=== PATIENT | male | born 1940 | race Asian ===

== ENCOUNTER 2017-11-20 22:05 | Emergency (ER) | payer MEDICARE, OTHER ==
[~2017-11-20] VITALS: Ht 170.2 cm; Wt 81.6 kg
[2017-11-20] MEDS ORDERED: Sodium Chloride 500ML 500 ML IV ONE (22:23)
[2017-11-20] MEDS ORDERED: LISINOPRIL5 MG ORAL (22:43)
[2017-11-20] MEDS ORDERED: METFORMIN HCL1000 M3 PO (22:43)
[2017-11-20 22:58] LABS: HEMATOCRIT 50.6 % (42.0-52.0); HEMOGLOBIN 17.2 G/DL (14.2-18.0); MEAN CORPUSCULAR VOLUME 86 FL (80-99); PLATELET COUNT 228 K/UL (150-450); RED BLOOD COUNT 5.87 M/UL (4.70-6.10)
[2017-11-20 23:04] LABS: ANION GAP 13 mmol/L (5-15); BLOOD UREA NITROGEN 16 mg/dL (7-18); CARBON DIOXIDE 24 MMOL/L (21-32); CHLORIDE 95 MMOL/L (98-107); CREATININE 1.4 MG/DL (0.55-1.30); POTASSIUM 3.2 MMOL/L (3.5-5.1); SODIUM 132 MMOL/L (136-145)
[2017-11-20 23:17] LABS: ALANINE AMINOTRANSFERASE 49 U/L (12-78); ALBUMIN 3.5 G/DL (3.4-5.0); ALBUMIN/GLOBULIN RATIO 0.8 (1.0-2.7); ALKALINE PHOSPHATASE 77 U/L (46-116); ASPARTATE AMINO TRANSFERASE 22 U/L (15-37); BILIRUBIN,TOTAL 0.5 MG/DL (0.2-1.0); CKMB 1.1 NG/ML (0.0-3.6); CREATINE KINASE 217 U/L (26-308)
[2017-11-20 23:25] VITALS: BP 190/100
[2017-11-20] MEDS ORDERED: dilTIAZem HCl 25mg/5ml Inj IVP ONE (23:45)
[2017-11-20 23:56] VITALS: BP 183/89
[2017-11-21] MEDS ORDERED: Morphine Sulfate 4mg/ml Inj IVP ONE (00:15)
[2017-11-21 00:32] LABS: INR 1.1 (0.9-1.1)
[2017-11-21 02:01] VITALS: BP 182/93
[2017-11-21] MEDS ORDERED: dilTIAZem HCl 25mg/5ml Inj IVP ONE (03:00)
[2017-11-21 03:28] VITALS: BP 169/83
--- NOTE | 2017-11-21 03:28 | Emergency Room Report ---
History of Present Illness General Chief Complaint: Multiple Trauma/Fall Source: Patient, EMS Present Illness HPI 77 yo male presents ED for evaluation. Per EMS patient had fall at home. Patient states he felt weak on his left side and fell. He denies hitting his head or LOC. Complaining of left hip pain. Throbbing, 8 out of 10, nonradiating. Unable to bear weight. 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 Denies any new weakness. Per EMS patient is hypertensive. Patient states he does not know his blood pressure meds. States he has not been taking his medications. Denies chest pain shortness of breath. No other aggravating or relieving factors. Denies any other associated symptoms Allergies: Coded Allergies: No Known Allergies (Unverified , 11/20/17) Patient History Past Medical History: DM, HTN, CVA/TIA Past Surgical History: none Pertinent Family History: none Social History: Denies: smoking, alcohol use, drug use Immunizations: UTD Reviewed Nursing Documentation: PMH: Agreed, PSxH: Agreed Nursing Documentation-PMH Hx Hypertension: Yes Hx Diabetes: Yes Hx Cerebrovascular Accident: Yes Review of Systems All Other Systems: negative except mentioned in HPI Physical Exam Vital Signs Date Time Temp Pulse Resp B/P (MAP) Pulse Ox O2 Delivery O2 Flow Rate FiO2 11/20/17 21:54 98.5 118 20 202/112 98 Room Air 98.4 11/20/17 23:56 2.0 Sp02 EP Interpretation: reviewed, normal General Appearance: no apparent distress, alert, GCS 15, non-toxic Head: normocephalic, atraumatic Eyes: bilateral eye normal inspection, bilateral eye PERRL ENT: hearing grossly normal, normal pharynx, no angioedema, normal voice Neck: full range of motion, supple/symm/no masses Respiratory: chest non-tender, lungs clear, normal breath sounds, speaking full sentences Cardiovascular #1: regular rate, rhythm, no edema Cardiovascular #2: 2+ carotid (R), 2+ carotid (L), 2+ radial (R), 2+ radial (L) , 2+ dorsalis pedis (R), 2+ dorsalis pedis (L) Gastrointestinal: normal bowel sounds, non tender, soft, non-distended, no guarding, no rebound Rectal: deferred Genitourinary: normal inspection, no CVA tenderness Musculoskeletal: back normal, gait/station normal, decreased range of motion, tender - L hip Neurologic: alert, oriented x3, responsive, process analyst III-XII nml as tested, motor strength/tone normal, sensory intact, speech normal Psychiatric: judgement/insight normal, memory normal, mood/affect normal, no suicidal/homicidal ideation Reflexes: 3+ bicep (R), 3+ bicep (L), 3+ tricep (R), 3+ tricep (L), 3+ knee (R) , 3+ knee (L) Skin: normal color, no rash, warm/dry, well hydrated Lymphatic: no adenopathy Medical Decision Making Diagnostic Impression: Primary Impression: Hypertensive urgency Additional Impression: Hip fracture Qualified Codes: S72.002A - Fracture of unspecified part of neck of left femur , initial encounter for closed fracture ER Course Hospital Course 77-year-old male presents to ED with Lhip pain s/p fall. hypertensive/ tachycardia Differential diagnoses include: fracture, dislocation, contusion Clinical course Patient placed on stretcher. After initial history and physical I ordered labs , pain medication and imaging studies Labs reviewed-mild leukocytosis noted, electrolytes okay, hemoglobin/hematocrit okay Chest x-ray- unremarkable, cardiomegaly Femur x-ray shows subcapital femoral neck fx CT Pelvis confirms fx CT head unremarkable Patient remains tachycardic/hypertensive in ED. Given Cardizem with blood pressure, tachycardia improving Because of insurance patient will be transferred i. I feel this is a highly complex case requiring extensive working including EKG/Rhythm strip, Xray/CT/US, Blood/urine lab work, repeat exams while in ED, and administration of strong opiates/narcotics for pain control, admission to hospital or close patient follow up. Diagnosis - hypertensive urgency, hip fx Transferred in serious condition Labs Test 11/20/17 22:38 White Blood Count 20.0 K/UL (4.8-10.8) Red Blood Count 5.87 M/UL (4.70-6.10) Hemoglobin 17.2 G/DL (14.2-18.0) Hematocrit 50.6 % (42.0-52.0) Mean Corpuscular Volume 86 FL (80-99) Mean Corpuscular Hemoglobin 29.4 PG (27.0-31.0) Mean Corpuscular Hemoglobin Concent 34.1 G/DL (32.0-36.0) Red Cell Distribution Width 11.0 % (11.6-14.8) Platelet Count 228 K/UL (150-450) Mean Platelet Volume 6.2 FL (6.5-10.1) Neutrophils (%) (Auto) % (45.0-75.0) Lymphocytes (%) (Auto) % (20.0-45.0) Monocytes (%) (Auto) % (1.0-10.0) Eosinophils (%) (Auto) % (0.0-3.0) Basophils (%) (Auto) % (0.0-2.0) Differential Total Cells Counted 100 Neutrophils % (Manual) 87 % (45-75) Lymphocytes % (Manual) 6 % (20-45) Monocytes % (Manual) 4 % (1-10) Eosinophils % (Manual) 0 % (0-3) Basophils % (Manual) 0 % (0-2) Band Neutrophils 3 % (0-8) Platelet Estimate Adequate Platelet Morphology Normal Prothrombin Time 11.3 SEC (9.30-11.50) Prothromb Time International Ratio 1.1 (0.9-1.1) Activated Partial Thromboplast Time 29 SEC (23-33) Sodium Level 132 MMOL/L (136-145) Potassium Level 3.2 MMOL/L (3.5-5.1) Chloride Level 95 MMOL/L (98-107) Carbon Dioxide Level 24 MMOL/L (21-32) Anion Gap 13 mmol/L (5-15) Blood Urea Nitrogen 16 mg/dL (7-18) Creatinine 1.4 MG/DL (0.55-1.30) Estimat Glomerular Filtration Rate mL/min (>60) Glucose Level 344 MG/DL (74-106) Calcium Level 9.0 MG/DL (8.5-10.1) Total Bilirubin 0.5 MG/DL (0.2-1.0) Aspartate Amino Transf (AST/SGOT) 22 U/L (15-37) Alanine Aminotransferase (ALT/SGPT) 49 U/L (12-78) Alkaline Phosphatase 77 U/L (46-116) Total Creatine Kinase 217 U/L (26-308) Creatine Kinase MB 1.1 NG/ML (0.0-3.6) Creatine Kinase MB Relative Index 0.5 Troponin I 0.000 ng/mL (0.000-0.056) Pro-B-Type Natriuretic Peptide 55 pg/mL (0-125) Total Protein 7.8 G/DL (6.4-8.2) Albumin 3.5 G/DL (3.4-5.0) Globulin 4.3 g/dL Albumin/Globulin Ratio 0.8 (1.0-2.7) EKG Diagnostic Results Rate: tachycardiac Rhythm: NSR ST Segments: no acute changes ASA given to the pt in ED: No Rhythm Strip Diag. Results EP Interpretation: yes Rhythm: NSR, no PVC's, no ectopy Chest X-Ray Diagnostic Results Chest X-Ray Diagnostic Results : Chest X-Ray Ordered: Yes # of Views/Limited/Complete: 1 View Indication: Other - fall EP Interpretation: Yes Interpretation: no consolidation, no effusion, no pneumothorax, no acute cardiopulmonary disease Impression: Other - cardiomegaly Electronically Signed by: Electronically signed by Joey Rodriguez MD Other X-Ray Diagnostic Results Other X-Ray Diagnostic Results #1: X-Ray ordered: Left knee # of Views/Limited Vs Complete: 3 View Indication: Pain EP Interpretation: Yes Interpretation: no dislocation, no soft tissue swelling, no fractures Impression: No acute disease Electronically Signed by: Electronically signed by Joey Rodriguez MD Other X-Ray Diagnostic Results #2: X-Ray ordered: L tibfib # of Views/Limited Vs Complete: 3 View Indication: Pain EP Interpretation: Yes Interpretation: no dislocation, no soft tissue swelling, no fractures Impression: No acute disease Electronically Signed by: Electronically signed by Joey Rodriguez MD Other X-Ray Diagnostic Results #3: X-Ray ordered: Left femur # of Views/Limited Vs Complete: 3 View Indication: Pain EP Interpretation: Yes Interpretation: no dislocation, no soft tissue swelling, other - femoral neck fx Impression: Other - fx Electronically Signed by: Electronically signed by Joey Rodriguez MD CT/MRI/US Diagnostic Results CT/MRI/US Diagnostic Results #1: Imaging Test Ordered: CT Head Impression no acute process CT/MRI/US Diagnostic Results #2: Imaging Test Ordered: CT Pelvis Impression acute impacted/angulated left subcapital femoral neck fx Last Vital Signs Date Time Temp Pulse Resp B/P (MAP) Pulse Ox O2 Delivery O2 Flow Rate FiO2 11/21/17 02:01 112 22 182/93 94 Nasal Cannula 2.0 11/20/17 21:54 98.5 98.4 Status: improved Disposition: XFER SHT-TRM HOSP Condition: Serious Referrals: [facility],REFERRING (PCP) JOEY RODRIGUEZ M.D. Nov 21, 2017 03:28
--- NOTE | 2017-11-21 09:38 | Diagnostic Imaging Report ---
Indication: Pain, status post fall Technique: spiral acquisitions obtained through the brain. Angled axial and coronal 5 x 5 mm slices were reconstructed. No IV contrast utilized. Radiation dose was minimized using automated exposure control Total dose length product 1411.27 mGycm. CTDIvol(s) 70.38 mGy Comparison: none FINDINGS: No acute hemorrhage or edema. No mass effect or midline shift. There is age-related enlargement of the ventricles and extra axial CSF spaces. There is periventricular deep white matter ischemic change. Normal laurent-white differentiation. Old lacunar infarcts are seen in the right basal ganglia and periventricular deep white matter. Visualized orbits are unremarkable. There is minimal ethmoid sinus mucosal thickening.. Intact calvarium. IMPRESSION: Chronic and age-related changes. Negative for acute intracranial bleed or mass effect Minimal sinus disease This agrees with the preliminary interpretation provided overnight by [facility] service. The CT scanner at [facility] is accredited by the [employer] and the scans are performed using protocols designed to limit radiation exposure to as low as reasonably achievable to attain images of sufficient resolution adequate for diagnostic evaluation
--- NOTE | 2017-11-21 09:42 | Diagnostic Imaging Report ---
Indication: Pain, status post fall Technique: Noncontrast spiral acquisitions obtained through the pelvis. Multiplanar reconstructions generated. Total dose length product 430.8 mGycm. CTDIvol(s) 11.41,12.02 mGy. Dose reduction achieved using automated exposure control Comparison: none Findings: There is a fracture of the left femoral neck. This is slightly posteriorly angulated. No associated pelvic fracture demonstrated. No significant soft tissue hematoma demonstrated. Scattered small osteonecrotic foci are seen in the pelvis. There are degenerative changes of the lumbosacral junction. The prostate is mildly enlarged. There is a small fat-containing left inguinal hernia. There is colonic diverticulosis. Impression: Positive for left femoral neck fracture Small osteoporotic foci in the pelvis probably represent small bone islands, osseous metastases less likely Other findings as noted, including prostatomegaly, colonic diverticulosis, fat-containing left inguinal hernia, degenerative spondylosis This agrees with the preliminary interpretation provided overnight by [facility]. The CT scanner at [facility] is accredited by the [employer] and the scans are performed using protocols designed to limit radiation exposure to as low as reasonably achievable to attain images of sufficient resolution adequate for diagnostic evaluation.
--- NOTE | 2017-11-21 10:43 | Diagnostic Imaging Report ---
Indication: Pain, status post fall Technique: 3 views of the left knee Comparison: None Findings: No suprapatellar effusion. No acute fractures or dislocations. There are lateral osteophytes. 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 Another calcification projects in the posterior knee joint could represent small loose body. Impression: No acute bony trauma Mild degenerative changes Possible small intra-articular loose body-correlate with clinical findings This agrees with the preliminary interpretation provided by the emergency room physician
--- NOTE | 2017-11-21 10:44 | Diagnostic Imaging Report ---
Indication: Pain, status post fall Technique: 2 views of the tibia and fibula Comparison: none Findings: No acute fractures. No dislocations. No radiopaque foreign body Impression: Negative This agrees with the preliminary interpretation provided by the emergency room physician
--- NOTE | 2017-11-21 10:49 | Diagnostic Imaging Report ---
Indications: Pain, status post fall Technique: Two views of the left femur Comparison: None Findings: There is a fracture of the left femoral neck. No distal fracture demonstrated. Impression: Positive for femoral neck fracture This agrees with the preliminary interpretation provided by the emergency room physician
--- NOTE | 2017-11-21 14:11 | Diagnostic Imaging Report ---
Indication: Chest pain, trauma Technique: One view of the chest Comparison: none Findings: There is a band of atelectasis at the right lung base. There is equivocal small cystic space at the left lung base. There are multiple left rib fracture deformities which are probably old and healed. No gross pneumothorax Normal heart size Impression: Minimal right basilar atelectasis. No definite acute process otherwise Left rib fracture deformities, probably old Possible small bulla at the left lung base This agrees with the preliminary interpretation provided by the emergency room physician
--- NOTE | 2017-11-21 18:31 | Cardiology Report ---
APPROVED REPORT EKG Measurement Heart [id number] Sin[address] N[address] ST abnormality Abnormal ECG
== END 2017-11-21 03:26 | disposition short-term general hospital (02) ==
LOC: EDBD 22:05 → EMR 22:55 → EDBEDREQ 23:32 → EMR 11-21 03:26
DX: S72.092A Other fracture of head and neck of left femur, initial encounter for closed fracture (principal); W19.XXXA Unspecified fall, initial encounter; Y92.019 Unspecified place in single-family (private) house as the place of occurrence of the external cause; I16.0 Hypertensive urgency; E11.9 Type 2 diabetes mellitus without complications; Z86.73 Personal history of transient ischemic attack (TIA), and cerebral infarction without residual deficits; R51 Headache; J32.9 Chronic sinusitis, unspecified
CPT/HCPCS: 36415; 70450; 71045; 72192; 80053; 82550; 82553; 82962; 83880; 84484; 85007; 85025; 85610; 85730; 86850; 86900; 86901; 93005; 96361; 96374; 96375; 99285

== ENCOUNTER 2018-01-19 10:08 | Inpatient (IN) | payer MEDICARE, OTHER ==
[~2018-01-19] VITALS: Ht 160 cm; Wt 52.6 kg
[~2018-01-19 10:08] MED LIST: LISINOPRIL5 MG ORAL; METFORMIN HCL1000 M3 PO
[2018-01-19] MEDS ORDERED: cefTRIAXone 1 GM in NS 55 ML IVPB ONE (10:15)
[2018-01-19] MEDS ORDERED: Morphine Sulfate 4mg/ml Inj IVP ONE ×3 (10:15→16:00)
[2018-01-19] MEDS ORDERED: Isovue-300 100ml vial INJ PRN (10:15)
[2018-01-19 10:49] LABS: APPEARANCE,URINE TURBID; BILIRUBIN, URINE NEGATIVE (NEGATIVE); COLOR,URINE PALE YELLOW; GLUCOSE, URINE (UA) NEGATIVE (NEGATIVE); KETONES,URINE 4+ (NEGATIVE); LEUKOCYTE ESTERASE ,URINE 3+ (NEGATIVE); NITRITE,URINE POSITIVE (NEGATIVE); PH,URINE 7 (4.5-8.0); PROTEIN,URINE 4+ (NEGATIVE); UROBILINOGEN,URINE NORMAL MG/DL (0.0-1.0)
[2018-01-19 10:50] LABS: BASOPHILS % (AUTO) 1.1 % (0.0-2.0); HEMATOCRIT 40.7 % (42.0-52.0); HEMOGLOBIN 12.8 G/DL (14.2-18.0); LYMPHOCYTES % (AUTO) 35.7 % (20.0-45.0); MEAN CORPUSCULAR VOLUME 88 FL (80-99); MONOCYTES % (AUTO) 4.7 % (1.0-10.0); NEUTROPHILS % (AUTO) 54.5 % (45.0-75.0); PLATELET COUNT 279 K/UL (150-450); RED BLOOD COUNT 4.65 M/UL (4.70-6.10); RED CELL DISTRIBUTION WIDTH 13.6 % (11.6-14.8); WHITE BLOOD COUNT 13.2 K/UL (4.8-10.8)
[2018-01-19 11:17] LABS: ANION GAP 17 mmol/L (5-15); BLOOD UREA NITROGEN 24 mg/dL (7-18); CALCIUM 9.4 MG/DL (8.5-10.1); CARBON DIOXIDE 18 MMOL/L (21-32); CHLORIDE 99 MMOL/L (98-107); CREATININE 1.1 MG/DL (0.55-1.30); POTASSIUM 4.2 MMOL/L (3.5-5.1); SODIUM 134 MMOL/L (136-145)
[2018-01-19 11:21] LABS: ALANINE AMINOTRANSFERASE 21 U/L (12-78); ALBUMIN 3.3 G/DL (3.4-5.0); ALBUMIN/GLOBULIN RATIO 0.7 (1.0-2.7); ALKALINE PHOSPHATASE 108 U/L (46-116); ASPARTATE AMINO TRANSFERASE 24 U/L (15-37); BILIRUBIN,TOTAL 0.7 MG/DL (0.2-1.0)
[2018-01-19] MEDS ORDERED: LORazepam Inj 2mg/ml 1ml IV ONE (11:45)
[2018-01-19 12:00] VITALS: BP 109/58
[2018-01-19] MEDS ORDERED: Vancomycin 1 GM in NS 275 ML IVPB ONE (13:00)
[2018-01-19 13:38] VITALS: BP 97/54
[2018-01-19 14:00] VITALS: BP 124/71
--- NOTE | 2018-01-19 14:00 | Emergency Room Report ---
History of Present Illness General Chief Complaint: Male Urogenital Problems Source: Medical Record, EMS (CHRISTIANO WALKER.Bunny) Present Illness HPI Patient is brought in by EMS. The patient has severe dementia and is unable to give a history. EMS were called by the caregiver. There was concern that the Zamarripa catheter wasn't draining properly. 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 The patient is screaming and yelling that he has pain. He appears to localize the pain to the catheter area. Otherwise, the patient just shouts nonsensically. The caregiver did not arrive or any other family member. The patient did not come with any medical history. He is otherwise no history available. (CHRISTIANO WALKER.Bunny) Allergies: Coded Allergies: No Known Allergies (Unverified , 11/20/17) Patient History Past Medical History: see triage record, DM, HTN, CVA/TIA, dementia Past Surgical History: other - L. BKA Social History: Denies: smoking, alcohol use, drug use Reviewed Nursing Documentation: PMH: Agreed; PSxH: Agreed (CHRISTIANO WALKER D.O. ) Nursing Documentation-PMH Past Medical History: No History, Except For Hx Hypertension: Yes Hx Diabetes: Yes Hx Cerebrovascular Accident: Yes (CHRISTIANO WALKER D.O.) Review of Systems All Other Systems: limited (CHRISTIANO WALKER D.O.) Physical Exam Vital Signs Date Time Temp Pulse Resp B/P (MAP) Pulse Ox O2 Delivery O2 Flow Rate FiO2 01/19/18 10:06 98.2 115 20 130/86 99 Room Air 98.2 Sp02 EP Interpretation: reviewed, normal General Appearance: alert, GCS 15, non-toxic, other - Shouting, angry., Chronically Ill Head: normocephalic, atraumatic Eyes: bilateral eye normal inspection, bilateral eye PERRL ENT: hearing grossly normal, normal pharynx, no angioedema, normal voice Neck: full range of motion, supple/symm/no masses Respiratory: chest non-tender, lungs clear, normal breath sounds, no respiratory distress, no retraction, no accessory muscle use, speaking full sentences Cardiovascular #1: no edema, tachycardia Gastrointestinal: normal bowel sounds, soft, non-distended, tenderness - Diffusely ttp Rectal: deferred Genitourinary: other - zamarripa catheter draining cloudy urine. Musculoskeletal: normal range of motion, non-tender Neurologic: alert, responsive, motor strength/tone normal, speech normal, other - Agitated, shouting Psychiatric: other - agitated Skin: warm/dry, well hydrated, other - See RN skin exam (CHRISTIANO WALKER D.O.) Medical Decision Making Diagnostic Impression: Primary Impression: Pyelonephritis ER Course This patient has pyelonephritis. He is also very agitated. Eventually at the end of this patient's ED course, the patient's son did arrive and was able to give a better history. Patient has a history of diabetes and underwent a BKA about one month ago. He had been complaining about having to urinate this morning despite having a Zamarripa catheter in place. Given broad-spectrum antibiotics and IV fluids. I also had to give this patient Ativan for his severe agitation. He underwent CT of the abdomen and pelvis which showed no obvious abnormalities, although it was limited by motion artifact. The patient is admitted for further evaluation and treatment. Laboratory Tests Test 01/19/18 10:25 White Blood Count 13.2 K/UL (4.8-10.8) H Red Blood Count 4.65 M/UL (4.70-6.10) L Hemoglobin 12.8 G/DL (14.2-18.0) L Hematocrit 40.7 % (42.0-52.0) L Mean Corpuscular Volume 88 FL (80-99) Mean Corpuscular Hemoglobin 27.6 PG (27.0-31.0) Mean Corpuscular Hemoglobin Concent 31.5 G/DL (32.0-36.0) L Red Cell Distribution Width 13.6 % (11.6-14.8) Platelet Count 279 K/UL (150-450) Mean Platelet Volume 6.8 FL (6.5-10.1) Neutrophils (%) (Auto) 54.5 % (45.0-75.0) Lymphocytes (%) (Auto) 35.7 % (20.0-45.0) Monocytes (%) (Auto) 4.7 % (1.0-10.0) Eosinophils (%) (Auto) 4.0 % (0.0-3.0) H Basophils (%) (Auto) 1.1 % (0.0-2.0) Urine Color Pale yellow Urine Appearance Turbid Urine pH 7 (4.5-8.0) Urine Specific [place] 1.005 (1.005-1.035) Urine Protein 4+ (NEGATIVE) H Urine Glucose (UA) Negative (NEGATIVE) Urine Ketones 4+ (NEGATIVE) H Urine Occult Blood 5+ (NEGATIVE) H Urine Nitrite Positive (NEGATIVE) H Urine Bilirubin Negative (NEGATIVE) Urine Urobilinogen Normal MG/DL (0.0-1.0) Urine Leukocyte Esterase 3+ (NEGATIVE) H Urine RBC 60-80 /HPF (0 - 0) H Urine WBC Tntc /HPF (0 - 0) H Urine Squamous Epithelial Cells Few /LPF (NONE/OCC) Urine Calcium Oxalate Crystals Occasional /LPF (NONE) Urine Bacteria Many /HPF (NONE) H Urine Granular Casts 0-2 /LPF (NONE) H Sodium Level 134 MMOL/L (136-145) L Potassium Level 4.2 MMOL/L (3.5-5.1) Chloride Level 99 MMOL/L (98-107) Carbon Dioxide Level 18 MMOL/L (21-32) L Anion Gap 17 mmol/L (5-15) H Blood Urea Nitrogen 24 mg/dL (7-18) H Creatinine 1.1 MG/DL (0.55-1.30) Estimate Glomerular Filtration Rate mL/min (>60) Glucose Level 103 MG/DL (74-106) Calcium Level 9.4 MG/DL (8.5-10.1) Total Bilirubin 0.7 MG/DL (0.2-1.0) Aspartate Amino Transferase (AST) 24 U/L (15-37) Alanine Aminotransferase (ALT) 21 U/L (12-78) Alkaline Phosphatase 108 U/L (46-116) Total Protein 7.9 G/DL (6.4-8.2) Albumin 3.3 G/DL (3.4-5.0) L Globulin 4.6 g/dL Albumin/Globulin Ratio 0.7 (1.0-2.7) L Lipase 94 U/L (73-393) (CHRISTIANO WALKER.OYue) ER Course Patient's insurance company was unable to arrange a timely transfer. The patient was discussed with Dr. Gamal Neri for admission and further management of pyelonephritis. The per discussion with the patient's son patient is full code. (Suresh Georges MD) EKG Diagnostic Results Rate: tachycardiac Rhythm: other - S.tachycardia ST Segments: no acute changes (CHRISTIANO WALKER D.O.) Rate: tachycardiac - 121 Rhythm: NSR ST Segments: no acute changes (Suresh Georges MD) Rhythm Strip Diag. Results EP Interpretation: yes Rate: 110's Rhythm: no PVC's, no ectopy, other Other Impression S.tachycardia (CHRISTIANO WALKER D.O.) CT/MRI/US Diagnostic Results CT/MRI/US Diagnostic Results : Imaging Test Ordered: CT abd/pelvis Impression No acute findings. See official report. (CHRISTIANO WALKER D.O.) Last Vital Signs Date Time Temp Pulse Resp B/P (MAP) Pulse Ox O2 Delivery O2 Flow Rate FiO2 01/19/18 12:55 98.2 01/19/18 12:00 106 18 109/58 100 Room Air (CHRISTIANO WALKER D.O.) Status: unchanged (Suresh Georges MD) Disposition: ADMITTED INPATIENT Condition: Serious Referrals: NON PHYSICIAN (PCP) CHRISTIANO WALKER D.O. January 19, 2018 14:00 Suresh Georges MD January 19, 2018 18:03
[2018-01-19] MEDS ORDERED: MIRTAZAPINE7.5 MG ORAL (14:11)
[2018-01-19] MEDS ORDERED: TAMSULOSIN HCL0.4 MG ORAL (14:11)
[2018-01-19] MEDS ORDERED: LEXAPRO10 MG ORAL (14:11)
[2018-01-19] MEDS ORDERED: PROSCAR5 MG ORAL (14:11)
[2018-01-19] MEDS ORDERED: QUETIAPINE FUMA50 MG ORAL (14:11)
[2018-01-19] MEDS ORDERED: LORAZEPAM1 MG ORAL (14:11)
[2018-01-19] MEDS ORDERED: OXYCODONE-ACET1 EAC3 ORAL (14:11)
[2018-01-19] MEDS ORDERED: CALCITRIOL0.25 MCG PO (14:11)
[2018-01-19] MEDS ORDERED: LYRICA75 M1 ORAL (14:11)
[2018-01-19] MEDS ORDERED: AMLODIPINE BESYL5 MG ORAL (14:11)
[2018-01-19] MEDS ORDERED: METFORMIN HCL1000 M1 ORAL (14:11)
[2018-01-19] MEDS ORDERED: ATORVASTATIN CA40 MG ORAL (14:11)
--- NOTE | 2018-01-19 14:21 | Diagnostic Imaging Report ---
Clinical Indication: Abdominal pain, pelvic tenderness Technique: No oral contrast utilized, per emergency room physician request IV administration nonionic contrast. Venous phase spiral acquisition obtained through the abdomen and pelvis. Multiplanar reconstructions were generated. Total dose length product 1281.32 mGycm. CTDIvol(s) 12.33,12.57 mGy. Dose reduction achieved using automated exposure control Comparison: Pelvis CT dated 11/20/2017. No comparison abdominal CTs Findings: Exam is very limited due to motion artifact. The prostate is enlarged. There is a Gomez catheter within the bladder lumen. Air within the bladder is presumably related to the Gomez catheterization. Evaluation of the bladder lumen itself is limited both due to motion artifact as well as due to streak artifact from adjacent hip prosthesis. There is fairly extensive colonic diverticulosis. No definite evidence of diverticulitis. The appendix is not definitely visualized, but no findings to suggest acute appendicitis are evident. Small bowel loops are slightly prominent, somewhat fluid-filled, but not grossly distended. No free or loculated intraperitoneal air or fluid is evident. There is a small fat-containing left inguinal hernia. Distal esophagus, stomach, duodenum are unremarkable. No definite gallstones are identified, although evaluation for such is very limited. The liver, bile ducts, pancreas, spleen, adrenals, left kidney are grossly unremarkable. The right kidney demonstrates one or more subcentimeter low-attenuation cortical lesions, too small to characterize but most likely representing benign simple cysts. As mentioned earlier, there is a left hip hemiarthroplasty prosthesis, presumably related to the left hip fracture demonstrated on the previous study. The included lung bases are grossly clear. The bones demonstrate degenerative spondylosis changes Impression: Very limited exam due to extensive motion artifact No gross acute abnormality Prostatomegaly. Gomez catheter is seen within the bladder. Air within the bladder is likely related to the Gomez catheterization. Colonic diverticulosis. No evidence of diverticulitis Right renal subcentimeter low-attenuation lesions, too small to characterize, most likely benign simple cysts. No further follow-up necessary Evidence of interim left hip hemiarthroplasty for treatment of previously described left femoral neck fracture Other findings as noted, including degenerative spondylosis, small fat-containing left inguinal hernia The CT scanner at [facility] is accredited by the [employer] and the scans are performed using protocols designed to limit radiation exposure to as low as reasonably achievable to attain images of sufficient resolution adequate for diagnostic evaluation.
[2018-01-19 16:00] VITALS: BP 122/67
[2018-01-19] MEDS ORDERED: Tubing IV Secondary IV ONE (16:51)
[2018-01-19] MEDS ORDERED: D5NS 1000ml IV ONE (16:51)
[2018-01-19 18:00] VITALS: BP 113/65
[2018-01-19 20:00] VITALS: BP 93/46
[2018-01-19] MEDS ORDERED: Morphine Sulfate 4mg/ml Inj IVP PRN (22:45)
[2018-01-19] MEDS: Morphine Sulfate 4mg/ml Inj IVP PRN (23:09)
[2018-01-19] MEDS ORDERED: D5NS 1,000 ML IV SCH (23:30)
[2018-01-20] MEDS: Piperacillin/Tazobactam 3.375 GM in NS 110 ML IVPB SCH ×4 (00:12→21:07)
[2018-01-20] MEDS: Haloperidol 5mg/ml Inj IM PRN ×2 (00:31→08:50)
[2018-01-20 04:00] VITALS: BP 108/64
--- NOTE | 2018-01-20 07:20 | History & Physical ---
History and Physical History & Physicial #[id number] UTI malfunctioning zamarripa DM HTN CVA dementia recent KATHERYNA LONI ALANIZ DO January 20, 2018 07:20
[2018-01-20] MEDS: Morphine Sulfate 4mg/ml Inj IVP PRN ×2 (07:59→16:26)
[2018-01-20 08:00] VITALS: BP 116/64
[2018-01-20] MEDS ORDERED: oxyCODONE HCL/Acetaminophen 5/325mg ORAL PRN (08:00)
[2018-01-20] MEDS ORDERED: LORazepam 1mg tab ORAL PRN (08:00)
[2018-01-20 08:16] LABS: HEMATOCRIT 35.5 % (42.0-52.0); HEMOGLOBIN 11.7 G/DL (14.2-18.0); MEAN CORPUSCULAR VOLUME 86 FL (80-99); PLATELET COUNT 227 K/UL (150-450); RED BLOOD COUNT 4.11 M/UL (4.70-6.10); RED CELL DISTRIBUTION WIDTH 13.7 % (11.6-14.8); WHITE BLOOD COUNT 10.3 K/UL (4.8-10.8)
[2018-01-20] MEDS: metFORMIN 500mg tab ORAL SCH (08:35)
[2018-01-20] MEDS: Lyrica 25mg cap ORAL SCH ×2 (08:37→21:06)
[2018-01-20] MEDS: Escitalopram Oxalate 5mg tab ORAL SCH (08:37)
[2018-01-20] MEDS: Calcitriol 0.25mcg Cap ORAL SCH (08:37)
[2018-01-20] MEDS: Heparin 5000 units/ml inj SUBQ SCH ×2 (08:41→21:24)
[2018-01-20 08:43] LABS: ANION GAP 11 mmol/L (5-15); BLOOD UREA NITROGEN 23 mg/dL (7-18); CALCIUM 8.9 MG/DL (8.5-10.1); CARBON DIOXIDE 23 MMOL/L (21-32); CHLORIDE 108 MMOL/L (98-107); CREATININE 1.2 MG/DL (0.55-1.30); POTASSIUM 3.3 MMOL/L (3.5-5.1); SODIUM 142 MMOL/L (136-145)
[2018-01-20] MEDS ORDERED: Lyrica 25mg cap ORAL SCH (09:00)
[2018-01-20] MEDS ORDERED: Lisinopril 10mg tab ORAL SCH (09:00)
[2018-01-20] MEDS ORDERED: LORazepam 1mg tab ORAL SCH (09:00)
--- NOTE | 2018-01-20 09:05 | Diagnostic Imaging Report ---
PORTABLE AP UPRIGHT CXR: HISTORY: 77-year-old male with abdominal pain, SOB. COMPARISON: 11/20/2017. FINDINGS: Compared to the prior exam, lung volumes are mildly decreased. There is probable minimal subsegmental atelectasis in the perihilar/infrahilar lungs bilaterally. No confluent lung consolidation or evidence of acute pulmonary edema. Heart size is normal and stable. No significant mediastinal widening, allowing for technique. No obvious pneumothorax or effusion. Old left rib fractures are noted, as before. No subdiaphragmatic free air. IMPRESSION: No definite acute abnormality or significant interval change.
--- NOTE | 2018-01-20 11:01 | History and Physical Report ---
DATE OF ADMISSION: 01/19/2018 REASON FOR ADMISSION: Abdominal pain, malfunctioning Gomez. HISTORY OF PRESENT ILLNESS: This is an elderly gentleman not able to give a history was brought in by caregiver, concerned that the Gomez was not draining. Gomez was changed and urine was present but had elevated white count, fever and was brought in for IV antibiotics and further evaluation. The patient was very agitated and screaming from pain prior to being admitted which was improved. There has been no report of chest pain. No nausea, vomiting, or diarrhea. He is nonambulatory. PAST MEDICAL HISTORY: Diabetes, hypertension, strokes, and severe dementia. PAST SURGICAL HISTORY: Left BKA, left hip arthroplasty. SOCIAL HISTORY: Negative for tobacco, alcohol, or drugs. MEDICATIONS: Prehospital and present medications reviewed, reconciled, and documented in the electronic medical record in terms of dose, frequency, and route. ALLERGIES: He has no known drug allergies. FAMILY HISTORY: Unavailable. REVIEW OF SYSTEMS: Unreliable due to the patient's current condition. PHYSICAL EXAMINATION: GENERAL: At the time my exam, he is alert, currently in no acute distress. VITAL SIGNS: Afebrile. His pulse is 101, respirations 20, blood pressure 108/64, is 97% on room air. HEENT: Normocephalic and atraumatic. Oropharynx is dry. Nasal mucosa is dry. Poor dentition is noted. LUNGS: Decreased at the bases. No wheezes present. HEART: Regular rhythm without a murmur. ABDOMEN: Soft, nontender, and nondistended. Positive bowel sounds. EXTREMITIES: No edema. BKA is noted which is recent and incision is clean, dry, and intact. SKIN: No other skin rashes or lesions are present. LABORATORY AND DIAGNOSTIC DATA: His laboratory values in the emergency room have a white count of 13.2, hemoglobin 12.8, platelets are 279,000. Sodium 134, potassium 4.2, chloride 99, bicarb is 18, BUN 24, creatinine 1.1. Glucose is 103. LFTs are normal. Albumin is reduced at 3.3. Urinalysis is positive for leukocyte esterase. CT of the abdomen and pelvis is performed which demonstrates no acute abnormalities, diverticulosis. ASSESSMENT AND PLAN: Abdominal pain with possible malfunctioning Gomez, urinary tract infection, rule out pyelonephritis, leukocytosis, diabetes, hypertension, dementia, and history of CVA. PLAN: Plan for the patient, he has been admitted. Urine culture and blood cultures have been obtained. Intravenous antibiotics started. We will tailor his antibiotics accordingly. DVT prophylaxis. Glycemic control and a diabetic diet. Oral care intravenous fluids, as needed nebulizers. Home medications resumed with blood pressure holds as needed. Psychiatric medications as he has been taking for dementia have been resumed as well. We will continue to follow the patient for remainder of his hospital stay. Casandra Carolina D.O. DR: LEVAR JOB#: [id number] CC:
[2018-01-20] MEDS: NovoLOG Insulin Flexpen SUBQ SCH ×3 (11:44→21:00)
[2018-01-20 12:00] VITALS: BP 103/54
[2018-01-20] MEDS: Vancomycin 1250mg/D5W 250ml 250 ML IVPB SCH (12:28)
[2018-01-20 16:00] VITALS: BP 111/60
[2018-01-20 20:00] VITALS: BP 113/71
[2018-01-20] MEDS: Atorvastatin 80mg tab ORAL SCH (21:06)
[2018-01-20] MEDS: Tamsulosin 0.4mg cap ORAL SCH (21:06)
[2018-01-21] VITALS: BP 95/48
[2018-01-21 04:00] VITALS: BP 133/73
[2018-01-21] MEDS: NovoLOG Insulin Flexpen SUBQ SCH ×4 (05:42→20:53)
[2018-01-21] MEDS: Piperacillin/Tazobactam 3.375 GM in NS 110 ML IVPB SCH ×3 (05:42→21:05)
[2018-01-21 08:00] VITALS: BP 109/73
[2018-01-21 08:41] LABS: BASOPHILS % (AUTO) 1.4 % (0.0-2.0); EOSINOPHILS % (AUTO) 16.3 % (0.0-3.0); HEMOGLOBIN 11.2 G/DL (14.2-18.0); LYMPHOCYTES % (AUTO) 18.2 % (20.0-45.0); MEAN CORPUSCULAR VOLUME 87 FL (80-99); NEUTROPHILS % (AUTO) 58.1 % (45.0-75.0); PLATELET COUNT 218 K/UL (150-450); RED BLOOD COUNT 3.92 M/UL (4.70-6.10); RED CELL DISTRIBUTION WIDTH 13.8 % (11.6-14.8); WHITE BLOOD COUNT 11.1 K/UL (4.8-10.8)
[2018-01-21] MEDS: Heparin 5000 units/ml inj SUBQ SCH ×2 (08:56→20:53)
[2018-01-21] MEDS: metFORMIN 500mg tab ORAL SCH (08:57)
[2018-01-21] MEDS: Escitalopram Oxalate 5mg tab ORAL SCH (08:57)
[2018-01-21] MEDS: Lyrica 25mg cap ORAL SCH ×2 (08:58→20:52)
[2018-01-21] MEDS: Calcitriol 0.25mcg Cap ORAL SCH (08:58)
[2018-01-21 09:04] LABS: ANION GAP 11 mmol/L (5-15); BLOOD UREA NITROGEN 19 mg/dL (7-18); CALCIUM 8.5 MG/DL (8.5-10.1); CARBON DIOXIDE 23 MMOL/L (21-32); CHLORIDE 110 MMOL/L (98-107); POTASSIUM 3.2 MMOL/L (3.5-5.1); SODIUM 144 MMOL/L (136-145)
[2018-01-21 12:00] VITALS: BP 139/76
[2018-01-21] MEDS: Vancomycin 1250mg/D5W 250ml 250 ML IVPB SCH (12:12)
[2018-01-21 16:00] VITALS: BP 120/70
[2018-01-21 20:00] VITALS: BP 143/83
[2018-01-21] MEDS: Atorvastatin 80mg tab ORAL SCH (20:51)
[2018-01-21] MEDS: Tamsulosin 0.4mg cap ORAL SCH (20:52)
[2018-01-22] VITALS: BP 122/74
[2018-01-22 04:00] VITALS: BP 141/72
[2018-01-22] MEDS: Piperacillin/Tazobactam 3.375 GM in NS 110 ML IVPB SCH (05:12)
[2018-01-22] MEDS: NovoLOG Insulin Flexpen SUBQ SCH ×4 (05:47→21:00)
[2018-01-22 08:00] VITALS: BP 139/77
[2018-01-22] MEDS: Calcitriol 0.25mcg Cap ORAL SCH (08:25)
[2018-01-22] MEDS: Escitalopram Oxalate 5mg tab ORAL SCH (08:26)
[2018-01-22] MEDS: Lyrica 25mg cap ORAL SCH ×2 (08:26→21:00)
[2018-01-22] MEDS: Heparin 5000 units/ml inj SUBQ SCH ×2 (08:28→22:55)
[2018-01-22] MEDS: metFORMIN 500mg tab ORAL SCH (08:29)
[2018-01-22 12:00] VITALS: BP 121/77
--- NOTE | 2018-01-22 12:52 | General Progress Note ---
Assessment/Plan Assessment/Plan Abdominal pain with possible pyelonephritis leukocytosis diabetes hypertension dementia history of CVA hypokalemia no fever or WBC urine clear c/s noted change to rocephin x 7 d more K snf Subjective ROS Limited/Unobtainable: Yes Allergies: Coded Allergies: No Known Allergies (Unverified , 11/20/17) Objective Last 24 Hour Vital Signs Date Time Temp Pulse Resp B/P (MAP) Pulse Ox O2 Delivery O2 Flow Rate FiO2 01/22/18 08:26 97 139/77 01/22/18 08:00 100 01/22/18 08:00 98.4 95 18 139/77 99 Room Air 98.4 01/22/18 04:00 97.5 95 20 141/72 93 Room Air 97.5 01/22/18 00:00 97.3 91 19 122/74 98 Room Air 97.3 01/21/18 20:00 96 01/21/18 20:00 98.0 95 20 143/83 96 Room Air 98.0 01/21/18 16:00 96 01/21/18 16:00 98.2 94 18 120/70 97 Room Air 98.2 Intake and Output 01/21/18 01/22/18 19:00 07:00 Intake Total 1410.0 ml 327.5 ml Output Total 1500 ml 25 ml Balance -90.0 ml 302.5 ml Intake Oral 120 ml IV Total 1290.0 ml 327.5 ml Output Urine Total 1500 ml 25 ml # Voids 100 # Bowel Movements 2 Laboratory Tests 01/22/18 12:30: Vancomycin Level Trough [Pending] Height (Feet): 5 Height (Inches): 3.00 Weight (Pounds): 145 General Appearance: confused Neck: supple Cardiovascular: normal rate Respiratory/Chest: lungs clear Abdomen: non tender Gamal Neri MD January 22, 2018 12:52
[2018-01-22] MEDS ORDERED: Morphine Sulfate 4mg/ml Inj IVP PRN (14:00)
[2018-01-22] MEDS ORDERED: oxyCODONE HCL/Acetaminophen 5/325mg ORAL PRN (14:00)
[2018-01-22] MEDS: cefTRIAXone 1 GM in D5W 110 ML IVPB SCH (15:57)
[2018-01-22 16:00] VITALS: BP 140/83
[2018-01-22] MEDS: Tamsulosin 0.4mg cap ORAL SCH (22:51)
[2018-01-22] MEDS: Atorvastatin 80mg tab ORAL SCH (22:51)
[2018-01-22] MEDS: LORazepam 1mg tab ORAL PRN (22:52)
[2018-01-22 23:00] VITALS: BP 140/97
[2018-01-23] MEDS: Haloperidol 5mg/ml Inj IM PRN ×2 (03:14→21:36)
[2018-01-23 04:00] VITALS: BP 142/69
[2018-01-23] MEDS: NovoLOG Insulin Flexpen SUBQ SCH ×4 (06:11→21:00)
[2018-01-23 06:16] VITALS: BP 142/69
[2018-01-23 07:34] LABS: BASOPHILS % (AUTO) 1.1 % (0.0-2.0); EOSINOPHILS % (AUTO) 15.7 % (0.0-3.0); HEMATOCRIT 37.9 % (42.0-52.0); HEMOGLOBIN 12.6 G/DL (14.2-18.0); LYMPHOCYTES % (AUTO) 22.8 % (20.0-45.0); MEAN CORPUSCULAR VOLUME 85 FL (80-99); MONOCYTES % (AUTO) 6.5 % (1.0-10.0); PLATELET COUNT 261 K/UL (150-450); RED BLOOD COUNT 4.46 M/UL (4.70-6.10); RED CELL DISTRIBUTION WIDTH 13.2 % (11.6-14.8); WHITE BLOOD COUNT 8.3 K/UL (4.8-10.8)
[2018-01-23 07:37] LABS: ANION GAP 12 mmol/L (5-15); BLOOD UREA NITROGEN 4 mg/dL (7-18); CALCIUM 9.2 MG/DL (8.5-10.1); CARBON DIOXIDE 25 MMOL/L (21-32); CHLORIDE 104 MMOL/L (98-107); CREATININE 0.8 MG/DL (0.55-1.30); SODIUM 141 MMOL/L (136-145)
[2018-01-23 08:00] VITALS: BP 133/81
[2018-01-23] MEDS: Heparin 5000 units/ml inj SUBQ SCH ×2 (09:47→20:23)
[2018-01-23] MEDS: metFORMIN 500mg tab ORAL SCH (09:47)
[2018-01-23] MEDS: Escitalopram Oxalate 5mg tab ORAL SCH (09:48)
[2018-01-23] MEDS ORDERED: Isovue-300 100ml vial INJ PRN (10:15)
[2018-01-23 12:00] VITALS: BP 111/74
[2018-01-23] MEDS: Calcitriol 0.25mcg Cap ORAL SCH (12:02)
[2018-01-23] MEDS: Lyrica 25mg cap ORAL SCH ×2 (12:02→20:17)
--- NOTE | 2018-01-23 13:48 | General Progress Note ---
Assessment/Plan Assessment/Plan Abdominal pain due to pyelonephritis leukocytosis diabetes hypertension dementia history of CVA hypokalemia fell from bed, no injury waiting for snf bed cont abx Subjective ROS Limited/Unobtainable: Yes Allergies: Coded Allergies: No Known Allergies (Unverified , 11/20/17) Objective Last 24 Hour Vital Signs Date Time Temp Pulse Resp B/P (MAP) Pulse Ox O2 Delivery O2 Flow Rate FiO2 01/23/18 13:01 97.2 01/23/18 12:02 97.2 01/23/18 12:00 97.9 90 19 111/74 98 Room Air 97.9 90 01/23/18 09:48 94 133/81 01/23/18 08:00 97.2 94 17 133/81 100 Room Air 97.2 94 01/23/18 06:16 96.3 98 19 142/69 96 Room Air 96.3 98 01/23/18 04:00 96.3 98 19 142/69 96 Room Air 96.3 98 01/22/18 23:00 96.8 93 19 140/97 98 Room Air 96.8 88 01/22/18 16:00 98.4 97 18 140/83 97 Room Air 98.4 88 Intake and Output 01/22/18 01/23/18 19:00 07:00 Intake Total 710 ml Output Total 1 ml 800 ml Balance 709 ml -800 ml Intake Oral 590 ml Other 120 ml Output Urine Total 800 ml Stool Total 1 ml # Voids 2 # Bowel Movements 1 Laboratory Tests 01/23/18 06:55: White Blood Count 8.3, Red Blood Count 4.46L, Hemoglobin 12.6L, Hematocrit 37.9L , Mean Corpuscular Volume 85, Mean Corpuscular Hemoglobin 28.2, Mean Corpuscular Hemoglobin Concent 33.2, Red Cell Distribution Width 13.2, Platelet Count 261, Mean Platelet Volume 6.5, Neutrophils (%) (Auto) 54.0, Lymphocytes (% ) (Auto) 22.8, Monocytes (%) (Auto) 6.5, Eosinophils (%) (Auto) 15.7H, Basophils (%) (Auto) 1.1, Sodium Level 141, Potassium Level 3.0L, Chloride Level 104, Carbon Dioxide Level 25, Anion Gap 12, Blood Urea Nitrogen 4L, Creatinine 0.8, Estimat Glomerular Filtration Rate , Glucose Level 114H, Calcium Level 9.2 Height (Feet): 5 Height (Inches): 3.00 Weight (Pounds): 145 General Appearance: no apparent distress Gamal Neri MD January 23, 2018 13:48
[2018-01-23] MEDS: cefTRIAXone 1 GM in D5W 110 ML IVPB SCH (15:15)
[2018-01-23 20:00] VITALS: BP 135/83
[2018-01-23] MEDS: Atorvastatin 80mg tab ORAL SCH (20:17)
[2018-01-23] MEDS: Tamsulosin 0.4mg cap ORAL SCH (20:18)
[2018-01-23] MEDS: LORazepam 1mg tab ORAL PRN (21:52)
[2018-01-24] VITALS: BP 131/80
[2018-01-24 04:00] VITALS: BP 118/76
[2018-01-24] MEDS: NovoLOG Insulin Flexpen SUBQ SCH ×4 (06:30→21:00)
[2018-01-24 08:00] VITALS: BP 137/59
--- NOTE | 2018-01-24 08:48 | General Progress Note ---
Assessment/Plan Assessment/Plan Pyelonephritis leukocytosis diabetes hypertension dementia history of CVA hypokalemia agitated at times waiting for snf bed cont abx Subjective ROS Limited/Unobtainable: Yes Allergies: Coded Allergies: No Known Allergies (Unverified , 11/20/17) Objective Last 24 Hour Vital Signs Date Time Temp Pulse Resp B/P (MAP) Pulse Ox O2 Delivery O2 Flow Rate FiO2 01/24/18 08:00 97.7 80 20 137/59 99 97.7 01/24/18 04:00 97.8 89 18 118/76 98 97.8 01/24/18 00:00 97.6 89 18 131/80 98 97.6 01/23/18 21:16 97.2 01/23/18 20:17 97.2 01/23/18 20:00 97.7 100 18 135/83 98 97.7 01/23/18 12:02 97.2 01/23/18 12:00 97.9 90 19 111/74 98 Room Air 97.9 90 01/23/18 09:48 94 133/81 Intake and Output 01/23/18 01/24/18 19:00 07:00 Intake Total 770 ml 250 ml Output Total 450 ml 175 ml Balance 320 ml 75 ml Intake Oral 660 ml 250 ml IV Total 110 ml Output Urine Total 450 ml 175 ml # Bowel Movements 2 Height (Feet): 5 Height (Inches): 3.00 Weight (Pounds): 116 Gamal Neri MD January 24, 2018 08:48
[2018-01-24] MEDS: Calcitriol 0.25mcg Cap ORAL SCH (09:16)
[2018-01-24] MEDS: Escitalopram Oxalate 5mg tab ORAL SCH (09:24)
[2018-01-24] MEDS: metFORMIN 500mg tab ORAL SCH (09:25)
[2018-01-24] MEDS: Heparin 5000 units/ml inj SUBQ SCH ×2 (09:27→22:14)
[2018-01-24] MEDS: Lyrica 25mg cap ORAL SCH ×2 (09:39→22:13)
[2018-01-24 12:00] VITALS: BP 106/63
[2018-01-24] MEDS: cefTRIAXone 1 GM in D5W 110 ML IVPB SCH (15:26)
[2018-01-24 16:00] VITALS: BP 111/71
--- NOTE | 2018-01-24 18:45 | Consultation ---
History of Present Illness General Date patient seen: January 24, 2018 Chief Complaint: Male Urogenital Problems Present Illness HPI 77 yo male with dementia was bib. EMS who were called by the caregiver. There was concern that the Gomez catheter wasn't draining properly. the pt has episodes of agitation and has a sitter. the pt was unable to provide hx. Allergies: Coded Allergies: No Known Allergies (Unverified , 11/20/17) Medication History Scheduled Amlodipine Besylate* (Amlodipine Besylate*), 5 MG ORAL DAILY, (Reported) Atorvastatin Calcium* (Atorvastatin Calcium*), 80 MG ORAL BEDTIME, (Reported) Escitalopram Oxalate* (Lexapro*), 5 MG ORAL DAILY, (Reported) Finasteride* (Proscar*), 5 MG ORAL DAILY, (Reported) Metformin Hcl* (Metformin Hcl*), 1,000 MG ORAL DAILY, (Reported) Mirtazapine* (Mirtazapine*), 7.5 MG ORAL BEDTIME, (Reported) Pregabalin* (Lyrica*), 25 MG ORAL BID, (Reported) Quetiapine Fumarate* (Quetiapine Fumarate*), 50 MG ORAL DAILY, (Reported) Tamsulosin Hcl (Tamsulosin Hcl*), 0.4 MG ORAL BEDTIME, (Reported) Scheduled PRN Lorazepam* (Lorazepam*), 1 MG ORAL Q6HR PRN for For Anxiety, (Reported) Oxycodone Hcl/Acetaminophen 5-325* (Oxycodone-Acetaminophen 5-325*), 1 TAB ORAL Q4H PRN for For Pain, (Reported) Miscellaneous Medications Calcitriol (Calcitriol), 0.5 MCG PO, (Reported) Discontinued Medications Lisinopril (Lisinopril*), 5 MG ORAL DAILY, (Reported) Discontinued Reason: Therapy completed Patient History Healthcare decision maker Resuscitation status Full Code Advanced Directive on File Past Medical/Surgical History Past Medical/Surgical History: (1) Pyelonephritis Review of Systems Psychiatric: Reports: prior hx, anxiety, depressed feelings, emotional problems Physical Exam General Appearance: no apparent distress, confused, agitated Last 24 Hour Vital Signs Date Time Temp Pulse Resp B/P (MAP) Pulse Ox O2 Delivery O2 Flow Rate FiO2 01/24/18 16:00 98.1 89 18 111/71 99 98.1 01/24/18 12:00 97.7 91 15 106/63 99 97.7 01/24/18 10:38 97.7 01/24/18 09:39 97.7 01/24/18 09:19 101 137/86 01/24/18 08:00 97.7 80 20 137/59 99 97.7 01/24/18 04:00 97.8 89 18 118/76 98 97.8 01/24/18 00:00 97.6 89 18 131/80 98 97.6 01/23/18 20:17 97.2 01/23/18 20:00 97.7 100 18 135/83 98 97.7 Intake and Output 01/23/18 01/24/18 19:00 07:00 Intake Total 770 ml 250 ml Output Total 450 ml 175 ml Balance 320 ml 75 ml Intake Oral 660 ml 250 ml IV Total 110 ml Output Urine Total 450 ml 175 ml # Bowel Movements 2 Height (Feet): 5 Height (Inches): 3.00 Weight (Pounds): 116 Medications Current Medications Medications (Trade) Dose Ordered Sig/Nohemi Route PRN Reason Start Time Stop Time Status Last Admin Dose Admin Amlodipine Besylate (Norvasc) 5 mg DAILY ORAL 01/23/18 09:00 02/19/18 08:59 01/24/18 09:19 Atorvastatin Calcium (Lipitor) 80 mg BEDTIME ORAL 01/22/18 21:00 02/19/18 20:59 01/23/18 20:17 Calcitriol (Rocatrol) 0.25 mcg DAILY ORAL 01/23/18 09:00 02/19/18 08:59 01/24/18 09:16 Ceftriaxone Sodium 1 gm/ Dextrose 110 ml @ 220 mls/hr Q24H IVPB 01/22/18 15:00 01/29/18 14:59 01/24/18 15:26 Dextrose (Dextrose 50%) 25 ml STAT PRN IV Hypoglycemia 01/22/18 13:30 02/21/18 13:29 Dextrose (Dextrose 50%) 50 ml STAT PRN IV Hypoglycemia 01/22/18 13:30 02/21/18 13:29 Escitalopram Oxalate (Lexapro) 5 mg DAILY ORAL 01/23/18 09:00 02/19/18 08:59 01/24/18 09:24 Finasteride (Proscar) 5 mg DAILY ORAL 01/23/18 09:00 02/19/18 08:59 01/24/18 09:20 Haloperidol Lactate (Haldol) 5 mg Q4H PRN IM Agitation 01/22/18 14:00 02/21/18 13:59 01/23/18 21:36 Heparin Sodium (Porcine) (Heparin 5000 units/ml) 5,000 units EVERY 12 HOURS SUBQ 01/22/18 21:00 02/19/18 08:59 01/24/18 09:27 Insulin Aspart (NovoLOG) BEFORE MEALS AND HS SUBQ 01/22/18 16:30 02/19/18 11:29 01/23/18 11:28 Lorazepam (Ativan) 1 mg Q6H PRN ORAL For Anxiety 01/22/18 14:00 01/27/18 07:59 01/23/18 21:52 Metformin HCl (Glucophage) 1,000 mg DAILY ORAL 01/23/18 09:00 02/19/18 08:59 01/24/18 09:25 Mirtazapine (Remeron) 7.5 mg BEDTIME ORAL 01/22/18 21:00 02/19/18 20:59 01/23/18 20:17 Morphine Sulfate (Morphine Sulfate) 2 mg Q2H PRN IVP Severe Pain (Pain Scale 7-10) 01/22/18 14:00 01/29/18 13:59 Oxycodone/ Acetaminophen (Percocet 5-325) 1 tab Q4H PRN ORAL Moderate Pain (Pain Scale 4-6) 01/22/18 14:00 01/27/18 13:59 Potassium Chloride (K-Dur) 40 meq TWICE A DAY ORAL 01/22/18 18:00 02/19/18 17:59 01/24/18 17:00 Pregabalin (Lyrica) 25 mg Q12HR ORAL 01/22/18 21:00 02/19/18 08:59 01/24/18 09:39 Quetiapine Fumarate (SEROquel) 50 mg QHS ORAL 01/22/18 21:00 02/19/18 20:59 01/23/18 20:18 Tamsulosin HCl (Flomax) 0.4 mg BEDTIME ORAL 01/22/18 21:00 02/19/18 20:59 5/22/18 20:18 Assessment/Plan Assessment/Plan dementia with behavioral dist encephalopathy pao roth seroquel 50qhs seroquel prn raise the head Cayetano Last M.D. January 24, 2018 18:45
[2018-01-24] MEDS ORDERED: LORazepam 1mg tab ORAL PRN (19:00)
[2018-01-24 19:53] VITALS: BP 119/71
[2018-01-24] MEDS: Atorvastatin 80mg tab ORAL SCH (22:12)
[2018-01-24] MEDS: Tamsulosin 0.4mg cap ORAL SCH (22:12)
[2018-01-25] VITALS: BP 103/76
[2018-01-25 04:00] VITALS: BP 118/65
[2018-01-25] MEDS: NovoLOG Insulin Flexpen SUBQ SCH ×3 (06:15→16:30)
[2018-01-25 08:00] VITALS: BP 116/71
[2018-01-25 09:00] LABS: BASOPHILS % (AUTO) 2.2 % (0.0-2.0); EOSINOPHILS % (AUTO) 19.1 % (0.0-3.0); HEMATOCRIT 34.3 % (42.0-52.0); HEMOGLOBIN 11.6 G/DL (14.2-18.0); LYMPHOCYTES % (AUTO) 27.2 % (20.0-45.0); MEAN CORPUSCULAR VOLUME 85 FL (80-99); MONOCYTES % (AUTO) 7.9 % (1.0-10.0); NEUTROPHILS % (AUTO) 43.7 % (45.0-75.0); PLATELET COUNT 236 K/UL (150-450); RED BLOOD COUNT 4.02 M/UL (4.70-6.10); RED CELL DISTRIBUTION WIDTH 13.7 % (11.6-14.8); WHITE BLOOD COUNT 7.9 K/UL (4.8-10.8)
[2018-01-25 09:17] LABS: ANION GAP 9 mmol/L (5-15); BLOOD UREA NITROGEN 9 mg/dL (7-18); CALCIUM 9.1 MG/DL (8.5-10.1); CARBON DIOXIDE 23 MMOL/L (21-32); CHLORIDE 107 MMOL/L (98-107); CREATININE 0.8 MG/DL (0.55-1.30); POTASSIUM 4.3 MMOL/L (3.5-5.1); SODIUM 139 MMOL/L (136-145)
[2018-01-25] MEDS: metFORMIN 500mg tab ORAL SCH (09:45)
[2018-01-25] MEDS: Lyrica 25mg cap ORAL SCH (09:45)
[2018-01-25] MEDS: Calcitriol 0.25mcg Cap ORAL SCH (09:45)
[2018-01-25] MEDS: Escitalopram Oxalate 5mg tab ORAL SCH (09:45)
[2018-01-25] MEDS: Heparin 5000 units/ml inj SUBQ SCH (09:47)
[2018-01-25] MEDS ORDERED: CEFTRIAXON1 GM/50 ML IV (10:38)
[2018-01-25 12:00] VITALS: BP 157/95
[2018-01-25] MEDS: cefTRIAXone 1 GM in D5W 110 ML IVPB SCH (15:00)
[2018-01-25 16:00] VITALS: BP 100/62
--- NOTE | 2018-01-25 17:03 | General Progress Note ---
Assessment/Plan Assessment/Plan Pyelonephritis leukocytosis diabetes hypertension dementia history of CVA hypokalemia more calm no more falls waiting for snf transfer cont abx Subjective ROS Limited/Unobtainable: Yes Allergies: Coded Allergies: No Known Allergies (Unverified , 11/20/17) Objective Last 24 Hour Vital Signs Date Time Temp Pulse Resp B/P (MAP) Pulse Ox O2 Delivery O2 Flow Rate FiO2 01/25/18 16:00 98.0 79 19 100/62 97 98.0 79 01/25/18 12:00 98.0 88 19 157/95 98 98.0 88 01/25/18 09:46 89 116/71 01/25/18 08:00 98.0 89 19 116/71 97 98.0 89 01/25/18 04:00 97.5 74 18 118/65 98 97.5 01/25/18 00:00 97.9 95 18 103/76 97 97.9 01/24/18 19:53 98.1 91 18 119/71 97 Room Air 98.1 Intake and Output 01/24/18 01/25/18 19:00 07:00 Intake Total 480 ml 110 ml Output Total 175 ml 300 ml Balance 305 ml -190 ml Intake Oral 480 ml 110 ml Output Urine Total 175 ml 300 ml # Bowel Movements 3 Laboratory Tests 01/25/18 07:40: Sodium Level 139, Potassium Level 4.3, Chloride Level 107, Carbon Dioxide Level 23, Anion Gap 9, Blood Urea Nitrogen 9, Creatinine 0.8, Estimat Glomerular Filtration Rate , Glucose Level 99, Calcium Level 9.1 01/25/18 08:30: White Blood Count 7.9, Red Blood Count 4.02L, Hemoglobin 11.6L, Hematocrit 34.3L , Mean Corpuscular Volume 85, Mean Corpuscular Hemoglobin 28.8, Mean Corpuscular Hemoglobin Concent 33.8, Red Cell Distribution Width 13.7, Platelet Count 236, Mean Platelet Volume 6.5, Neutrophils (%) (Auto) 43.7L, Lymphocytes ( %) (Auto) 27.2, Monocytes (%) (Auto) 7.9, Eosinophils (%) (Auto) 19.1H, Basophils (%) (Auto) 2.2H Height (Feet): 5 Height (Inches): 3.00 Weight (Pounds): 116 Gamal Neri MD January 25, 2018 17:03
[2018-01-25] MEDS ORDERED: NS 275ml ONE (19:59)
[2018-01-25] MEDS ORDERED: Tubing IV Secondary IV ONE (19:59)
--- NOTE | 2018-01-26 11:52 | Discharge Summary ---
Discharge Summary Discharge Summary _ DATE OF ADMISSION: 01/19/2018 DATE OF DISCHARGE: 01/25/2018 CONSULTANTS: Dr. Cayetano Last BRIEF HOSPITAL COURSE: Patient is a 77-year-old male, who was brought via EMS by a caregiver for evaluation of abdominal pain and malfunctioning Gomez. He has history of diabetes, hypertension, stroke and severe dementia. On arrival to ED, patient was screaming nonsensically. He was agitated and was given Ativan. Gomez catheter was change to a 16 [place] catheter and was patent and draining well. Evaluation showed leukocytosis, urinalysis with 60-80 RBC, too many to count WBC, 3+ leukocyte esterase, positive nitrite. CT of the abdomen and pelvis showed no gross acute abnormality. He was admitted for pyelonephritis and was started on Rocephin. He was agitated at times. He was provided a sitter for patient's safety. He was diagnosed with dementia with behavioral disturbance and was started on Seroquel 50 mg daily at bedtime and prn by psychiatrist. Urine culture with growth of [place]id[place]. He was more calm. He was eventually discharged to a group home. FINAL DIAGNOSES: Pyelonephritis Leukocytosis Diabetes Hypertension Dementia with behavioral disturbance Encephalopathy Old CVA Hypokalemia DISPOSITION: Patient was discharged to [facility]. DISCHARGE MEDICATIONS: Refer to Discharge Medication List. Continue with ceftriaxone IV for 4 more days. I have been assigned to dictate discharge summary on this account, and I was not involved in the patient's management. Brittany Jose NP January 26, 2018 11:52
--- NOTE | 2018-01-26 14:33 | General Progress Note ---
Assessment/Plan Assessment/Plan dementia with behavioral dist encephalopathy dc sitter seroquel 50qhs seroquel prn raise the head Subjective Date patient seen: January 25, 2018 Neurologic/Psychiatric: Reports: anxiety, depressed, emotional problems Allergies: Coded Allergies: No Known Allergies (Unverified , 11/20/17) Objective Last 24 Hour Vital Signs Date Time Temp Pulse Resp B/P (MAP) Pulse Ox O2 Delivery O2 Flow Rate FiO2 01/25/18 16:00 98.0 79 19 100/62 97 98.0 79 Intake and Output 01/25/18 01/26/18 19:00 07:00 Intake Total 510 ml Output Total 300 ml Balance 210 ml Intake Oral 400 ml IV Total 110 ml Output Urine Total 300 ml Height (Feet): 5 Height (Inches): 3.00 Weight (Pounds): 116 General Appearance: WD/WN, no apparent distress, confused, agitated Cayetano Last M.D. January 26, 2018 14:33
== END 2018-01-25 20:00 | DRG 689 ==
LOC: EDBD 10:08 → EMR 11:12 → 4W 16:50 → EDBEDREQ 17:05 → EDBEDREQSVC 17:32 → EDBEDREQ 17:42 → 2E 18:08 → OBSVTOIN 18:23 → 2E 18:37 → 4W 01-22 12:50
DX: N10 Acute pyelonephritis (principal); G93.40 Encephalopathy, unspecified; F03.91 Unspecified dementia, unspecified severity, with behavioral disturbance; I10 Essential (primary) hypertension; E87.6 Hypokalemia; E11.9 Type 2 diabetes mellitus without complications; Z86.73 Personal history of transient ischemic attack (TIA), and cerebral infarction without residual deficits; Z89.512 Acquired absence of left leg below knee; K57.90 Diverticulosis of intestine, part unspecified, without perforation or abscess without bleeding; R45.1 Restlessness and agitation
CPT/HCPCS: 36415; 71045; 74177; 80048; 80053; 80202; 81003; 82962; 83690; 85007; 85025; 87040; 87086; 87181; 99285; J8499